=== PATIENT | male | born 1970 | race American Indian/Alaskan Native ===

== ENCOUNTER 2017-11-20 07:25 | Emergency (ER) | payer SELFPAY ==
--- NOTE | 2017-11-20 08:41 | RAD ---
CHEST ONE VIEW: History: 47-year-old male with history of cough, fever, chills, and congestion getting worse. FINDINGS: Heart size is normal. Healed right rib fractures. No confluent pneumonia, overt edema, or pleural eff usion. IMPRESSION: No acute intrathoracic disease. POS: [facility]
[2017-11-20 08:44] LABS: #Eosinphils 0.2 thou/uL (0.0-0.7); #Lymphocytes 1.9 thou/uL (1.20-3.40); #Monocytes 0.3 thou/uL (0.11-0.59); #Neutrophils 3.8 thou/uL (1.40-6.50); %Basophils 0.6 % (0.0-1.0); %Eosinophils 3.8 % (0.0-10.0); %Lymphocytes 30.6 % (21.0-51.0); %Monocytes 5.2 % (0.0-10.0); %Neutrophils 59.7 % (42.0-75.0); Mean Corpuscular HGB CONC 32.2 g/dL (32.0-36.0); Mean Corpuscular Hemoglobin 28.7 pg (27.0-31.0); Mean Corpuscular Volume 89.2 fl (80.0-94.0); Mean Platelet Volume 7.3 fL (7.4-10.4); Platelet Count 237 thou/uL (130-400); RBC Distribution Width 12.2 % (11.5-14.5); Red Blood Cell (RBC) Count 5.23 mill/uL (4.70-6.10); White Blood Cell (WBC) Count 6.3 thou/uL (4.8-10.8)
[2017-11-20] MEDS ORDERED: Ketorolac Tromethamine 60 MG/2 ML VIAL ONE (08:45)
[2017-11-20] MEDS ORDERED: Ondansetron ODT 4 MG TAB ONE (08:45)
[2017-11-20] MEDS ORDERED: Ketorolac Tromethamine 60 MG/2 ML VIAL IM SCH (08:45)
[2017-11-20 08:58] LABS: ALT (SGPT) 12 U/L (8-55); AST (SGOT) 12 U/L (5-34); Alkaline Phosphatase 82 U/L (40-150); Anion Gap 8 mmol/L (10-20); BUN (Urea Nitrogen) 10 mg/dL (8.9-20.6); Bilirubin, Total 0.3 mg/dL (0.2-1.2); Calc. Creatinine Clearance 0 mL/min (70-130); Calcium 9.5 mg/dL (7.8-10.44); Carbon Dioxide 31 mmol/L (22-29); Chloride 104 mmol/L (98-107); Estimated GFR-MDRD 87; Globulin 2.9 g/dL (2.4-3.5); Glucose 90 mg/dL (70-105); Potassium 3.9 mmol/L (3.5-5.1); Protein, Total 6.9 g/dL (6.0-8.3); Sodium 139 mmol/L (136-145)
[2017-11-20] MEDS ORDERED: predniSONE 20 MG TAB ONE (09:40)
== END 2017-11-20 09:46 | disposition home or self-care (01) ==
LOC: ERS 07:25
DX: J06.9 Acute upper respiratory infection, unspecified (principal); I10 Essential (primary) hypertension
CPT/HCPCS: 36415; 71045; 80053; 85025; 96372; J1885; J7506; Q0162

== ENCOUNTER 2017-11-20 19:10 | Emergency (ER) | payer SELFPAY ==
[2017-11-20] MEDS ORDERED: Famotidine 20 MG TAB ONE (20:59)
[2017-11-20] MEDS ORDERED: diphenhydrAMINE 25 MG CAP ONE (20:59)
== END 2017-11-20 21:03 | disposition home or self-care (01) ==
LOC: ERS 19:10
DX: H02.846 Edema of left eye, unspecified eyelid (principal); H02.8 Other specified disorders of eyelid; I10 Essential (primary) hypertension
CPT/HCPCS: 99283